=== PATIENT | female | born 1935 | race Caucasian/White ===

== ENCOUNTER 2020-01-25 06:26 | Emergency (ER) | payer OTHER, MEDICARE, SELFPAY ==
--- NOTE | ~2020-01-25 | XR_ITS ---
EXAMINATION: XR tibia fibula RT 2V DATE: 01/25/2020 07:10 INDICATION: Right lower leg injury and pain. TECHNIQUE: 2 views of right tibia and fibula on 3 radiographs were obtained. COMPARISON: None. FINDINGS: Bone alignment is normal. No fracture. There is mild midfoot osteoarthritis. There is an os teochondral lesion of medial talar dome. There is mild osteoarthritis of medial compartment of the kn ee. No knee joint effusion. There are enthesophytes at the posterior and plantar aspects of calcaneal tuberosity. There are surgical clips in the soft tissues medial to the knee. There is pretibial soft tissue swelling. IMPRESSION: 1. Polyarticular osteoarthritis. Reviewed, dictated and finalized at location A.
[2020-01-25 06:23] VITALS: BP 120/72; PULSE 84; RESP 18; TEMP 36.7; O2SAT 97
--- NOTE | 2020-01-25 07:03 | ED.FALL ---
HPI - Fall General Chief Complaint: Fall Stated Complaint: FALL Time Seen by Provider: 01/25/20 07:03 History of Present Illness HPI Narrative: 84 yo chapito presents from home after a fall. She slipped out of bed this morning and landed on her right leg. She has pain and swelling in the lower leg. It is very tender to touch. No pain in the hips, knees, or ankles. She denies hitting her head, back pain, any other injuries. Related Data Home Medications Medication Instructions Recorded Confirmed aspirin 81 mg tablet,delayed 81 mg PO DAILY 08/15/19 release Allergies Allergy/AdvReac Type Severity Reaction Status Date / Time grapefruit Allergy Severe THROAT Verified 01/25/20 06:37 SWELLS CAN'T BREATH cortisone Allergy Mild Unknown Verified 01/25/20 06:37 [place] Allergy Severe THROAT Uncoded 01/25/20 06:37 SWELLS/CAN'T BREATH Review of Systems Review of Systems: All systems reviewed & are unremarkable except as noted in HPI and below Constitutional: Constitutional: Denies fever(s) Cardiovascular: Cardiovascular: Denies chest pain Respiratory: Respiratory: Denies dyspnea Musculoskeletal: Musculoskeletal: Denies back pain Neurologic: Denies confusion, Denies dizziness, Denies syncope and Denies weakness [facility] Family History Family History Mother Patient's mother is in good health Father Patient's father is in good health Sibling Patient's sister is in good health Social History Social History Smoking status: Former smoker Smoking end date: 06/06/81 Alcohol intake: never Gender identity (if verbalized by the patient): Female Exam Const: General: healthy appearing, no acute distress and alert Orientation/consciousness: patient oriented x3 HENMT: Head: normal to inspection Resp: Effort & Inspection: normal respiratory effort Cardio: Jugular venous distension: no JVD Rate: regular rate Other: 2+ right DP GI: Inspection: non-distended GI Palp: Yes Soft to palpation and No Tenderness to palpation present (GI) Skin: Other: Bruising and minimal abrasion to right lower leg Neuro: General: patient oriented x3 and moves all extremities Speech: normal speech Extrem: Other: Swelling to right anterior lateral lower Psych: Appearance: well kempt Affect: normal affect Course Vital Signs Vital signs: Vital Signs Temperature 36.7 C 01/25/20 06:23 Pulse Rate 84 01/25/20 06:23 Respiratory Rate 18 01/25/20 06:23 Blood Pressure 120/72 01/25/20 06:23 Pulse Oximetry 97 01/25/20 06:23 Temperature 36.7 C 01/25/20 06:23 Pulse Rate 79 01/25/20 08:20 Respiratory Rate 18 01/25/20 08:20 Blood Pressure 127/73 01/25/20 08:20 Pulse Oximetry 95 01/25/20 08:20 MDM - Fall MDM Narrative Medical decision making narrative: x-ray negative for acute injury. She is ambulatory and not requiring any pain medication at this point. Will discharge home. Medical Records Attestation: I reviewed the patient's medical records. Imaging Data Radiologist's impression: ITS Impressions Tibia/Fibula X-Ray 01/25/20 07:13 IMPRESSION: 1. Polyarticular osteoarthritis. Discharge Plan Discharge Clinical Impression: Contusion of right lower leg, initial encounter Patient Disposition: Home, Self-Care Condition: Stable Instructions: Contusion in Adults (ED) Prescriptions: No Action aspirin [Adult Aspirin Regimen] 81 mg tablet,delayed release (DR/EC) 81 mg PO DAILY RF: 0 Follow-up/Referrals: UNKNOWN,DOCTOR [Primary Care Provider] -
[2020-01-25 08:20] VITALS: BP 127/73; PULSE 79; RESP 18; O2SAT 95
--- NOTE | 2020-01-25 08:20 | PC.NURSE ---
Pt states she has no way of getting ahold of her son at her home because she has their only phone. Matteo ROBLES contacted to try and get in contact with son to come and pick her up
== END 2020-01-25 08:56 | disposition home or self-care (01) ==
PROVIDERS: Emergency Provider Emergency Medicine
DX: S80.11XA Contusion of right lower leg, initial encounter (principal); Z87.891 Personal history of nicotine dependence; M19.071 Primary osteoarthritis, right ankle and foot; W06.XXXA Fall from bed, initial encounter
CPT/HCPCS: 73590; 99283